=== PATIENT | male | born 1950 | race Caucasian/White ===

== ENCOUNTER 2024-08-05 11:21 | Emergency (ER) | payer MEDICARE, OTHER ==
[2024-08-05 11:42] VITALS: RESP 18; TEMP 95.9
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
[2024-08-05] MEDS: XYLOCAINE 1% HCL 20 ML MDV IJ ONE (12:49)
[2024-08-05] MEDS ORDERED: XYLOCAINE 1% HCL 20 ML MDV ONE (12:51)
--- NOTE | 2024-08-05 12:55 | XRAY ---
Indication: Laceration thumb. Comparison: None 3 view right hand demonstrates thumb laceration with overlying bandage material. No other bony, articular, or soft tissue abnormalities.
--- NOTE | 2024-08-05 14:50 | XRAY ---
Indication: Head injury following fall. Blood in her therapy. Multiple contiguous axial images obtained through the head without contrast. Comparison: None Normal appearing brain parenchyma, ventricles, and bony calvarium for patient's age. Visualized paranasal sinuses and mastoid air cells are clear. Impression: Normal CT head without contrast exam.
--- NOTE | 2024-08-05 14:52 | XRAY ---
Indication: Head injury following fall. Multiple contiguous axial images obtained through the cervical spine. Sagittal and coronal reformatted images obtained. Comparison: None Osseous structures demineralized. Axial images negative for acute fracture, suspicious bony lesions, or spinal canal stenosis. There is minimal/mild C3-T1 degenerative endplate spurring and mild multilevel bilateral degenerative facet hypertrophy. Sagittal and coronal referred images demonstrates lordotic reversal, positional versus paraspinal spasm. C3-T1 degenerative disc space loss. No acute compression fracture, subluxation, or jumped facet. Normal appearing craniocervical junction. Visualized noncontrasted soft tissues demonstrates mild bilateral carotid calcifications. Lung apices clear. Impression: 1. Negative acute fracture/subluxation. 2. Cervical lordotic reversal, positional versus paraspinal spasm. 3. Multilevel degenerative spondylosis and bilateral carotid calcifications.
[2024-08-05 14:55] VITALS: BP 111/76; PULSE 60; O2SAT 97
== END 2024-08-05 14:56 | disposition home or self-care (01) ==
LOC: ED 11:21
DX: S61.011A Laceration without foreign body of right thumb without damage to nail, initial encounter (principal); W23.0XXA Caught, crushed, jammed, or pinched between moving objects, initial encounter; Y92.512 Supermarket, store or market as the place of occurrence of the external cause; Y99.0 Civilian activity done for income or pay; E78.5 Hyperlipidemia, unspecified; I10 Essential (primary) hypertension; E11.9 Type 2 diabetes mellitus without complications; Z79.899 Other long term (current) drug therapy; S09.90XA Unspecified injury of head, initial encounter; W19.XXXA Unspecified fall, initial encounter
CPT/HCPCS: 12002; 70450; 72125; 73130; 96372; 99284